=== PATIENT | male | born 1950 | race Caucasian/White ===

== ENCOUNTER 2018-01-06 13:41 | Emergency (ER) | payer MEDICARE ==
[2018-01-06 13:51] VITALS: BP 128/69
--- NOTE | 2018-01-06 14:55 | Emergency Department Report ---
ED General Adult HPI - General Chief complaint: Tube Replacement Stated complaint: PEG PLUG CAME OUT Time Seen by Provider: 01/06/18 14:35 Source: EMS Mode of arrival: Stretcher Limitations: No Limitations - History of Present Illness Initial comments: 67-year-old male with a past medical history CVA, hypertension, renal sufficiency, ulcers, and seizures presents to the hospital with feeding tube dysfunction. case d/w Hospice nurse Matt at [phone]. She has been with the patient for several months. She uses made aware of the tube leaking today. The site of leaking is at the distal portion of the tube. Tube is otherwise functional and patient is able to receive his feeds and medications via the feeding tube. She is unsure as to what type of feeding tube the patient has but it has been in place for at least 2 years. at bedside. No pain reported. - Related Data Previous Rx's Medication Instructions Recorded Last Taken Type AtorvaSTATin [Lipitor] 20 mg PO QHS #30 04/02/16 Unknown Rx Clopidogrel [Plavix] 75 mg PO QDAY #30 tablet 04/02/16 Unknown Rx Folic Acid [Folvite] 1 mg PO QDAY #30 04/02/16 Unknown Rx Lipase/Protease/Amylase [Pancreaze 1 each FEEDTUBE PRN PRN #30 capsule 04/02/[address],500 Unit] Pantoprazole [Protonix TAB] 40 mg PO QDAY #30 tablet 04/02/16 Unknown Rx Sertraline HCl [Zoloft] 50 mg PO QHS #30 04/02/16 Unknown Rx Simple Syrup 15 ml FEEDTUBE PRN PRN #30 04/02/16 Unknown Rx oral.liqd Simple Syrup 30 ml FEEDTUBE PRN PRN #30 04/02/16 Unknown Rx oral.liqd Sodium Bicarbonate 325 mg FEEDTUBE PRN PRN #30 tablet 04/02/16 Unknown Rx amLODIPine [Norvasc] 10 mg PO DAILY #30 04/02/16 Unknown Rx cloNIDine [Catapres] 0.2 mg PO BID #60 04/02/16 Unknown Rx levETIRAcetam [Keppra TAB] 500 mg PO BID #60 04/02/16 Unknown Rx Allergies Allergy/AdvReac Type Severity Reaction Status Date / Time No Known Allergies Allergy Verified 05/31/15 10:38 ED Review of Systems ROS: Stated complaint: PEG PLUG CAME OUT Other details as noted in HPI Comment: All other systems reviewed and negative ED Past Medical Hx - Past Medical History Hx Hypertension: Yes Hx CVA: Yes Hx Renal Disease: Yes Additional medical history: ulcers - Social History Smoking Status: Unknown if ever smoked Substance Use Type: None - Medications Home Medications: Home Medications Medication Instructions Recorded Confirmed Last Taken Type AtorvaSTATin [Lipitor] 20 mg PO QHS #30 04/02/16 03/26/16 Unknown Rx Clopidogrel [Plavix] 75 mg PO QDAY #30 tablet 04/02/16 Unknown Rx Folic Acid [Folvite] 1 mg PO QDAY #30 04/02/16 03/26/16 Unknown Rx Lipase/Protease/Amylase [Pancreaze 1 each FEEDTUBE PRN PRN #30 capsule 04/02/[address],500 Unit] Pantoprazole [Protonix TAB] 40 mg PO QDAY #30 tablet 04/02/16 Unknown Rx Sertraline HCl [Zoloft] 50 mg PO QHS #30 04/02/16 03/26/16 Unknown Rx Simple Syrup 15 ml FEEDTUBE PRN PRN #30 04/02/16 Unknown Rx oral.liqd Simple Syrup 30 ml FEEDTUBE PRN PRN #30 04/02/16 Unknown Rx oral.liqd Sodium Bicarbonate 325 mg FEEDTUBE PRN PRN #30 tablet 04/02/16 Unknown Rx amLODIPine [Norvasc] 10 mg PO DAILY #30 04/02/16 03/26/16 Unknown Rx cloNIDine [Catapres] 0.2 mg PO BID #60 04/02/16 03/26/16 Unknown Rx levETIRAcetam [Keppra TAB] 500 mg PO BID #60 04/02/16 03/26/16 Unknown Rx ED Physical Exam - General Limitations: No Limitations - Other Other exam information: General: No limitations, patient is alert in no acute distress Head exam: Atraumatic, normocephalic Eyes exam: Normal appearance ENT: Moist mucous membrane, normal oropharynx Neck exam: Normal inspection, full range of motion, no meningismus nontender Respiratory exam: Clear to auscultation bilateral, no wheezes, rales, crackles Cardiovascular: Normal rate and rhythm Abdomen: Soft, nondistended, and nontender, with normal bowel sounds, no rebound, or guarding. + feeding tube, no balloon, unsure if it is a g or j tube Extremity: Full range of motion normal inspection no deformity Back: Normal Inspection, full range of motion, no tenderness Neurologic: Alert Psychiatric: normal affect, normal mood ED Course Vital Signs 01/06/18 13:47 Temperature 97.6 F Pulse Rate 82 Respiratory 16 Rate Blood Pressure 128/69 O2 Sat by Pulse 97 Oximetry ED Medical Decision Making - Medical Decision Making In the ED we were able to clip the distal end of the feeding tube above the area of holes/leakage tube now flashes without signs of leakage. Case d/w head of maintenance Matt. [facility] [phone] will be contacted to readmit patient hospice. I also explains to patient's and Ukrainian speaking family member that they would need to follow with GI for definitive management of his feeding tube - Differential Diagnosis feeding tube dysfunction Critical Care Time: No Critical care attestation.: If time is entered above; I have spent that time in minutes in the direct care of this critically ill patient, excluding procedure time. ED Disposition Clinical Impression: Feeding tube dysfunction Qualifiers: Encounter type: initial encounter Qualified Code(s): T85.598A - Other mechanical complication of other gastrointestinal prosthetic devices, implants and grafts, initial encounter Disposition: - TO HOME OR SELFCARE Is pt being admited?: No Condition: Stable Instructions: How to Use and Care for Your PEG Tube (ED) Additional Instructions: Follow-up with a GI doctor provided for further management of your feeding tube. Return if symptoms worsen as indicated by your discharge instructions Referrals: MARIANA BRITO MD [Staff Physician] - 3-5 Days (GI doctor) Time of Disposition: 15:03
== END 2018-01-06 17:07 | disposition home or self-care (01) ==
LOC: ED 13:41
DX: T85.598A Other mechanical complication of other gastrointestinal prosthetic devices, implants and grafts, initial encounter (principal); I10 Essential (primary) hypertension; Z86.73 Personal history of transient ischemic attack (TIA), and cerebral infarction without residual deficits
CPT/HCPCS: 99283

== ENCOUNTER 2019-06-25 00:56 | Emergency (ER) | payer MEDICARE ==
--- NOTE | 2019-06-25 01:35 | Emergency Department Report ---
HPI - General Chief Complaint: Tube Replacement Time Seen by Provider: 06/25/19 01:00 - HPI HPI: Room 9 The patient is a 69-year-old male presented with a chief complaint of bleeding from G-tube site. Patient hasn't G-tube and the states this evening when she went to check on him she noticed some blood on the skin around the G-tube and the G-tube appeared to have been pulled out a small amount. She states the G-tube did not come out completely and she was able to push it back to his original position and call EMS. ED Past Medical Hx - Past Medical History Previous Medical History?: Yes Hx Hypertension: Yes Hx CVA: Yes Hx Diabetes: Yes Hx Renal Disease: Yes Additional medical history: ulcers, STROKE, BLOOD CLOT IN THE THROAT - Surgical History Past Surgical History?: Yes Additional Surgical History: REMOVAL OF THE TOES, G-tube - Family History Family history: no significant - Social History Smoking Status: Never Smoker Substance Use Type: None - Medications Home Medications: Home Medications Medication Instructions Recorded Confirmed Last Taken Type AtorvaSTATin [Lipitor] 20 mg PO QHS #30 04/02/16 03/26/16 Unknown Rx Clopidogrel [Plavix] 75 mg PO QDAY #30 tablet 04/02/16 Unknown Rx Folic Acid [Folvite] 1 mg PO QDAY #30 04/02/16 03/26/16 Unknown Rx Lipase/Protease/Amylase [Pancreaze 1 each FEEDTUBE PRN PRN #30 capsule 04/02/[address] 10,500 Unit] Pantoprazole [Protonix TAB] 40 mg PO QDAY #30 tablet 04/02/16 Unknown Rx Sertraline HCl [Zoloft] 50 mg PO QHS #30 04/02/16 03/26/16 Unknown Rx Simple Syrup 15 ml FEEDTUBE PRN PRN #30 04/02/16 Unknown Rx oral.liqd Simple Syrup 30 ml FEEDTUBE PRN PRN #30 04/02/16 Unknown Rx oral.liqd Sodium Bicarbonate 325 mg FEEDTUBE PRN PRN #30 tablet 04/02/16 Unknown Rx amLODIPine 10 mg PO DAILY #30 04/02/16 03/26/16 Unknown Rx cloNIDine [Catapres] 0.2 mg PO BID #60 04/02/16 03/26/16 Unknown Rx levETIRAcetam [Keppra TAB] 500 mg PO BID #60 04/02/16 03/26/16 Unknown Rx ED Review of Systems ROS: Stated complaint: DISLODGE FEEDING TUBE Other details as noted in HPI Comment: Unobtainable due to pts medical conditions Physical Exam - Physical Exam Vital Signs: Vital Signs 06/25/19 06/25/19 01:07 01:10 Temperature 98.1 F 98.5 F Pulse Rate 77 Respiratory 15 Rate Blood Pressure 147/77 [Left] O2 Sat by Pulse 95 Oximetry Physical Exam: GENERAL: The patient is well-developed well-nourished male lying on stretcher grinding his teeth but not appearing to be in acute distress. [] HEENT: Normocephalic. Atraumatic. NECK: Trachea midline CHEST/LUNGS: There is no respiratory distress noted. ABDOMEN: Abdomen is soft, nontender. G-tube is in place. There is significant resistance when the G-tube is pulled against consistent with an inflated balloon. No active hemorrhage seen from the G-tube site. Dry blood on the skin around the G-tube stoma. Patient has normal bowel sounds. There is no abdominal distention. SKIN: There is no rash. There is no edema. There is no diaphoresis. NEURO: The patient is awake MUSCULOSKELETAL: There is no evidence of acute injury. ED Course Vital Signs 06/25/19 06/25/19 01:07 01:10 Temperature 98.1 F 98.5 F Pulse Rate 77 Respiratory 15 Rate Blood Pressure 147/77 [Left] O2 Sat by Pulse 95 Oximetry ED Medical Decision Making - Radiology Data Radiology results: report reviewed (G-tube study), image reviewed (G-tube study) interpreted by me: G-tube study [id number] visualized within the stomach [facility] [address] [place] [address] XRay Report Signed Patient: DELFINO MELCHOR MR#: [id number] : 1950 Acct:[id number] Age/Sex: 69 / M ADM Date: 06/25/19 Loc: ED Attending Dr: Ordering Physician: JANNA ROBERSON MD Date of Service: 06/25/19 Procedure(s): XR g-tube study Accession Number(s): [id number] cc: JANNA ROBERSON MD Fluoro Time In Minutes: Abdomen 2 views INDICATION: Abdominal pain IMPRESSION: Injected contrast is a G-tube is seen within the stomach and proximal small bowel. Signer Name: Arthur Dutta MD Signed: 06/25/2019 2:10 AM Workstation Name: [id number] Transcribed By: TAE Dictated By: Arthur Dutta MD Electronically Authenticated By: Arthur Dutta MD Signed Date/Time: 06/25/19209 DD/ 8 TD/TT: - Differential Diagnosis partial dislodgment of G-tube Critical care attestation.: If time is entered above; I have spent that time in minutes in the direct care of this critically ill patient, excluding procedure time. ED Disposition Clinical Impression: Encounter for care related to feeding tube Disposition: DC-01 TO HOME OR SELFCARE Is pt being admited?: No Does the pt Need Aspirin: No Condition: Stable Additional Instructions: Return to the emergency department should you develop worsening symptoms, inability to tolerate food or liquids, high fever or any other concerns Referrals: VIANNEY CHICAS MD [Staff Physician] - 3-5 Days Time of Disposition: 02:34
--- NOTE | 2019-06-25 02:14 | XRay Report ---
Abdomen 2 views INDICATION: Abdominal pain IMPRESSION: Injected contrast is a G-tube is seen within the stomach and proximal small bowel. Signer Name: Arthur Dutta MD Signed: 06/25/2019 2:10 AM Workstation Name: [id number]
[2019-06-25 04:27] VITALS: BP 138/73
== END 2019-06-25 04:25 | disposition home or self-care (01) ==
LOC: ED 00:56
DX: K94.21 Gastrostomy hemorrhage (principal); I10 Essential (primary) hypertension; E11.9 Type 2 diabetes mellitus without complications; Z86.73 Personal history of transient ischemic attack (TIA), and cerebral infarction without residual deficits; Z79.899 Other long term (current) drug therapy
CPT/HCPCS: 74018; 99283; Q9963